=== PATIENT | female | born 1970 | race American Indian/Alaskan Native ===

== ENCOUNTER 2017-02-20 08:09 | Emergency (ER) | payer SELFPAY ==
[2017-02-20 09:37] LABS: Bilirubin,Urine NEG (Negative); Blood,Urine NEG (Negative); Ketones,Urine TR mg/dL (Negative); Leukocyte Esterase,Urine NEG (Negative); Mucus,Urine FEW /HPF; Nitrite,Urine NEG (Negative); Protein,Urine <15 mg/dL mg/dL (Negative); Urobilinogen,Urine < 2.0 mg/dL (<2.0)
--- NOTE | 2017-02-20 10:47 | Emergency Department Report ---
ED General Adult HPI - General Chief complaint: High BP Stated complaint: HIGHBLOOD PRESSURE/HEADACHE Time Seen by Provider: 02/20/17 10:28 Source: patient, EMS Mode of arrival: Stretcher Limitations: No Limitations - History of Present Illness Initial comments: The patient has been here from [place] for approximately one month. She is planning to spend one month further. She has been noncompliant with her blood pressure medicine for an unknown period of time but at least greater than 1 month. She states that she had a headache but it has resolved. She also experienced some dizziness but this too has resolved. She had no focal weakness or numbness. She was concerned about her blood pressure because of the above symptoms. She is requesting a prescription for a blood pressure medication. -: hour(s) Location: head Radiation: non-radiation Severity scale (0 -10): 0 Quality: aching Consistency: intermittent, now resolved Improves with: none Worsens with: none Associated Symptoms: denies other symptoms, other (except for vague dizziness but no vertigo no loss of coordination or difficulty with gait.) Treatments Prior to Arrival: none - Related Data Previous Rx's Medication Instructions Recorded Last Taken Type amLODIPine [Norvasc] 5 mg PO DAILY #30 tab 02/20/17 Unknown Rx Allergies Allergy/AdvReac Type Severity Reaction Status Date / Time aspirin Allergy Dizziness Verified 02/20/17 08:22 Penicillins Allergy Dizziness Verified 02/20/17 08:22 ED Review of Systems ROS: Stated complaint: HIGHBLOOD PRESSURE/HEADACHE Other details as noted in HPI Constitutional: denies: chills, fever Eyes: denies: eye pain, eye discharge, vision change ENT: denies: ear pain, throat pain Respiratory: denies: cough, shortness of breath, wheezing Cardiovascular: denies: chest pain, palpitations Endocrine: no symptoms reported Gastrointestinal: denies: abdominal pain, nausea, diarrhea Genitourinary: denies: urgency, dysuria, discharge Musculoskeletal: denies: back pain, joint swelling, arthralgia Skin: denies: rash, lesions Neurological: headache. denies: weakness, paresthesias Psychiatric: denies: anxiety, depression Hematological/Lymphatic: denies: easy bleeding, easy bruising ED Past Medical Hx - Past Medical History Hx Hypertension: Yes - Social History Smoking Status: Never Smoker - Medications Home Medications: Home Medications Medication Instructions Recorded Confirmed Last Taken Type amLODIPine [Norvasc] 5 mg PO DAILY #30 tab 02/20/17 Unknown Rx ED Physical Exam - General Limitations: No Limitations General appearance: alert, in no apparent distress - Head Head exam: Present: atraumatic, normocephalic - Eye Eye exam: Present: normal appearance. Absent: scleral icterus - ENT ENT exam: Present: normal exam, mucous membranes moist - Neck Neck exam: Present: normal inspection. Absent: tenderness, meningismus - Respiratory Respiratory exam: Present: normal lung sounds bilaterally. Absent: respiratory distress - Cardiovascular Cardiovascular Exam: Present: regular rate, normal rhythm. Absent: systolic murmur, diastolic murmur, rubs, gallop - GI/Abdominal GI/Abdominal exam: Present: soft, normal bowel sounds. Absent: distended, tenderness, guarding, rebound - Extremities Exam Extremities exam: Present: normal inspection - Back Exam Back exam: Present: normal inspection - Neurological Exam Neurological exam: Present: alert, oriented X3, CN II-XII intact, normal gait, other (cerebellar testing was normal). Absent: motor sensory deficit - Psychiatric Psychiatric exam: Present: normal affect, normal mood - Skin Skin exam: Present: warm, dry, intact, normal color. Absent: rash ED Course Vital Signs 02/20/17 02/20/17 02/20/17 08:14 08:20 08:21 Temperature 98.6 F Pulse Rate 82 69 Respiratory 16 16 18 Rate Blood Pressure 210/138 Blood Pressure 210/138 184/106 [Left] O2 Sat by Pulse 99 99 100 Oximetry - Reevaluation(s) Reevaluation #1: Remarkably now at 11:15 I have discovered that this patient has refused phlebotomy for her laboratory tests. Patient will be signed out AGAINST MEDICAL ADVICE. She will be given a prescription for amlodipine and a referral to the [facility]. 02/20/17 11:15 Critical care attestation.: If time is entered above; I have spent that time in minutes in the direct care of this critically ill patient, excluding procedure time. ED Disposition Clinical Impression: Uncontrolled hypertension Cephalalgia Qualifiers: Headache type: unspecified Headache chronicity pattern: unspecified pattern Intractability: not intractable Qualified Code(s): R51 - Headache Disposition: LEFT AGAINST MEDICAL ADVICE Is pt being admited?: No Does the pt Need Aspirin: No Condition: Stable Instructions: Hypertension (ED) Additional Instructions: Further evaluation the primary care setting is recommended. You have impaired are evaluation of your uncontrolled hypertension because you have refused blood work. Further evaluation is recommended. Prescriptions: amLODIPine [Norvasc] 5 mg PO DAILY #30 tab Referrals: [facility] [Provider Group] - 02/23/17 Forms: AMA Form Time of Disposition: 11:17
[2017-02-20 14:33] VITALS: BP 168/99
== END 2017-02-20 11:30 | disposition left against medical advice (07) ==
LOC: ED 08:09
DX: I10 Essential (primary) hypertension (principal); R51 Headache; Z88.6 Allergy status to analgesic agent; Z88.0 Allergy status to penicillin
CPT/HCPCS: 81001

== ENCOUNTER 2017-03-04 00:41 | Emergency (ER) | payer SELFPAY ==
[2017-03-04 03:44] LABS: Basophils % (Auto) 0.6 % (0.0-1.8); Eosinophils % (Auto) 0.4 % (0.0-4.3); Mean Corpuscular HGB Conc 29 % (30-34); Platelet Count 247 K/mm3 (140-440); Red Blood Count 4.75 M/mm3 (3.65-5.03); White Blood Count 6.3 K/mm3 (4.5-11.0)
[2017-03-04 03:48] LABS: Alanine Aminotransferase 9 units/L (7-56); Albumin 3.9 g/dL (3.9-5); Albumin/Globulin Ratio 0.9 %; Alkaline Phosphatase 44 units/L (35-129); Anion Gap 20 mmol/L; Blood Urea Nitrogen 12 mg/dL (7-17); Calcium 8.9 mg/dL (8.4-10.2); Carbon Dioxide 19 mmol/L (22-30); Chloride 99.3 mmol/L (98-107); Glucose 100 mg/dL (65-100); Lipase 35 units/L (13-60); Potassium 3.4 mmol/L (3.6-5.0); Sodium 135 mmol/L (137-145); Total Protein 8.3 g/dL (6.3-8.2)
[2017-03-04 04:13] LABS: Hematocrit 24.9 % (30.3-42.9); Hemoglobin 7.2 gm/dl (10.1-14.3); Mean Corpuscular Hemoglobin 16 pg (28-32); Mean Corpuscular Volume 55 fl (79-97); Red Cell Distribution Width 21.8 % (13.2-15.2)
[2017-03-04 04:27] LABS: Bilirubin,Urine NEG (Negative); Blood,Urine NEG (Negative); Ketones,Urine 20 mg/dL (Negative); Leukocyte Esterase,Urine NEG (Negative); Mucus,Urine FEW /HPF; Nitrite,Urine NEG (Negative); Protein,Urine <15 mg/dL mg/dL (Negative); Urobilinogen,Urine < 2.0 mg/dL (<2.0)
[2017-03-04] MEDS ORDERED: NACL 0.9% 1000 ML 1,000 ML IV ONE (10:58)
--- NOTE | 2017-03-04 11:01 | Emergency Department Report ---
ED Chest Pain HPI - General Chief Complaint: Chest Pain Stated Complaint: ROBERT Time Seen by Provider: 03/04/17 10:32 Source: patient Mode of arrival: Ambulatory Limitations: No Limitations - History of Present Illness MD Complaint: chest pain -: Gradual Onset: during rest Pain Location: epigastric Pain Radiation: none Severity scale (0 -10): 1 Quality: tightness Consistency: intermittent (lastin seconds at a time) Improves With: antacids Worsens With: nothing re: nausea. denies: vomting, diaphoresis, dyspnea, sense of impending doom Other Symptoms: denies: cough, fever, syncope, rash, acid taste in mouth, leg swelling, palpitations, burping Treatments Prior to Arrival: none Aspirin use within the Past 7 Days: (0) No - Related Data On Oral Contraceptives: No Previous Rx's Medication Instructions Recorded Last Taken Type amLODIPine [Norvasc] 5 mg PO DAILY #30 tab 02/20/17 Unknown Rx Allergies Allergy/AdvReac Type Severity Reaction Status Date / Time aspirin Allergy Dizziness Verified 02/20/17 08:22 Penicillins Allergy Dizziness Verified 02/20/17 08:22 DIANE score - Diane Score Age > 65: (0) No Aspirin use within the Past 7 Days: (0) No 3 or more CAD Risk Factors: (0) No 2 or more Angina events in past 24 hrs: (0) No Known CAD with more than 50% Stenosis: (0) No Elevated Cardiac Markers: (0) No ST Deviation Greater than 0.5mm: (0) No DIANE Score: 0 ED Review of Systems ROS: Stated complaint: ROBERT Other details as noted in HPI Comment: All other systems reviewed and negative ED Past Medical Hx - Past Medical History Previous Medical History?: Yes Hx Hypertension: Yes - Surgical History Past Surgical History?: No - Social History Smoking Status: Never Smoker Substance Use Type: None - Medications Home Medications: Home Medications Medication Instructions Recorded Confirmed Last Taken Type amLODIPine [Norvasc] 5 mg PO DAILY #30 tab 02/20/17 Unknown Rx ED Physical Exam - General Limitations: No Limitations General appearance: alert, in no apparent distress - Head Head exam: Present: atraumatic, normocephalic - Eye Eye exam: Present: normal appearance - ENT ENT exam: Present: mucous membranes moist - Neck Neck exam: Present: normal inspection - Respiratory Respiratory exam: Present: normal lung sounds bilaterally. Absent: respiratory distress - Cardiovascular Cardiovascular Exam: Present: regular rate, normal rhythm. Absent: systolic murmur, diastolic murmur, rubs, gallop - GI/Abdominal GI/Abdominal exam: Present: soft, normal bowel sounds - Extremities Exam Extremities exam: Present: normal inspection - Back Exam Back exam: Present: normal inspection - Neurological Exam Neurological exam: Present: alert, oriented X3 - Psychiatric Psychiatric exam: Present: normal affect, normal mood - Skin Skin exam: Present: warm, dry, intact, normal color. Absent: rash ED Course Vital Signs 03/04/17 03/04/17 03/04/17 02:25 05:07 08:41 Temperature 98.5 F 98.4 F Pulse Rate 91 H 80 Respiratory 18 14 14 Rate Blood Pressure 199/124 180/105 O2 Sat by Pulse 100 100 99 Oximetry 03/04/17 03/04/17 03/04/17 08:54 09:00 09:30 Temperature Pulse Rate 84 71 Respiratory 18 14 14 Rate Blood Pressure 177/92 169/102 O2 Sat by Pulse 100 98 Oximetry 03/04/17 03/04/17 03/04/17 10:00 10:30 11:00 Temperature Pulse Rate 78 94 H 80 Respiratory 18 17 21 Rate Blood Pressure 160/94 160/94 163/96 O2 Sat by Pulse 100 100 100 Oximetry 03/04/17 03/04/17 03/04/17 11:30 12:00 12:30 Temperature Pulse Rate 83 76 Respiratory 17 17 Rate Blood Pressure 163/96 164/95 164/95 O2 Sat by Pulse 100 100 99 Oximetry ED Medical Decision Making - Lab Data Result diagrams: 03/04/17 03:05 03/04/17 03:05 - EKG Data -: EKG Interpreted by Ut EKG shows normal: sinus rhythm - EKG Data When compared to previous EKG there are: no significant change - Radiology Data Radiology results: report reviewed, image reviewed - Medical Decision Making patient doing well , symptoms free at this time , she has a prolonged waiting time today , 3 set of enzymes negative , and a history and physical atypical for chest pain, discuss the case with cardiology and will see in their office this week, Critical care attestation.: If time is entered above; I have spent that time in minutes in the direct care of this critically ill patient, excluding procedure time. ED Disposition Clinical Impression: Uncontrolled hypertension Disposition: DISCHARGED TO HOME OR SELFCARE Is pt being admited?: No Does the pt Need Aspirin: No Condition: Good Instructions: Hypertension (ED) Referrals: PRIMARY CARE, [Primary Care Provider] - 3-5 Days Time of Disposition: 12:47
--- NOTE | 2017-03-04 12:13 | XRay Report ---
AP CHEST: HISTORY: chest pain AP view of the chest demonstrates a normal mediastinal and cardiac contour with clear lungs and normal bony and soft tissue structures. IMPRESSION: Unremarkable AP chest.
[2017-03-04 12:43] VITALS: BP 164/95
== END 2017-03-04 13:21 | disposition home or self-care (01) ==
LOC: ED 00:41
DX: I10 Essential (primary) hypertension (principal)
CPT/HCPCS: 36415; 71010; 80053; 81001; 81025; 83690; 84484; 85025; 93005; 93010; 96360; 99285; J7030